=== PATIENT | female | born 2000 | race Caucasian/White ===

== ENCOUNTER 2023-03-31 12:13 | Emergency (ER) | payer BC | END 2023-03-31 13:45 | disposition home or self-care (01) | LOC: MW.ED 12:13 | DX: J02.9 Acute pharyngitis, unspecified (principal); Z91.040 Latex allergy status | CPT/HCPCS: 87651-QW; 99283 ==

== ENCOUNTER 2023-05-24 06:26 | Emergency (ER) | payer SELFPAY ==
[2023-05-24] MEDS ORDERED: Acetaminophen 325 MG Tab PO ONE (06:58)
[2023-05-24] MEDS ORDERED: Lidocaine 2% 11 ML Jelly Filled Syringe MUCMEM STA (06:58)
[2023-05-24] MEDS ORDERED: valACYclovir 500 MG Tab PO ONE (06:58)
[2023-05-24] MEDS ORDERED: Ibuprofen 400 MG Tab PO ONE (06:58)
[2023-05-29 08:02] LABS: HSV-1 DNA Positive (Negative); HSV-2 DNA Negative (Negative)
== END 2023-05-24 07:58 | disposition home or self-care (01) ==
LOC: MW.ED 06:26
DX: B00.9 Herpesviral infection, unspecified (principal); Z91.040 Latex allergy status
CPT/HCPCS: 87529; 99284; A9270; 99283

== ENCOUNTER 2023-09-11 11:48 | Emergency (ER) | payer BC ==
[2023-09-11] MEDS ORDERED: Ondansetron 4 MG/2 ML SDV IVPUSH STA (11:52)
[2023-09-11] MEDS ORDERED: Sodium Chloride 0.9% 10 ML Syringe FLUSH PRN (11:52)
[2023-09-11] MEDS ORDERED: Sodium Chloride 0.9% 2.5 ML Syringe FLUSH PRN (11:52)
[2023-09-11] MEDS ORDERED: Sodium Chloride 0.9% 1,000 ML IV STA ×2 (11:52→12:33)
[2023-09-11 12:10] LABS: BASOPHILS ABSOLUTE AUTO 0.03 K/uL (0.00-0.20); BASOPHILS PERCENT AUTO 0.2 % (0.0-1.0); EOSINOPHILS ABSOLUTE AUTO 0.04 K/uL (0.00-0.45); EOSINOPHILS PERCENT AUTO 0.3 % (0.0-6.0); HEMATOCRIT 42.3 % (37.0-47.0); HEMOGLOBIN 14.9 g/dL (12.0-16.0); IMMATURE GRAN ABSOLUTE AUTO 0.07 K/uL (0.00-0.05); IMMATURE GRAN PERCENT AUTO 0.5 % (0.0-0.4); LYMPHOCYTES ABSOLUTE AUTO 0.24 K/uL (1.00-4.80); LYMPHOCYTES PERCENT AUTO 1.8 % (24.0-44.0); MEAN CORPUSCULAR HEMOGLOBIN 29.2 pg (28.0-32.0); MEAN CORPUSCULAR HGB CONC 35.2 g/dL (32.0-36.0); MEAN CORPUSCULAR VOLUME 82.8 fL (83.0-99.0); MEAN PLATELET VOLUME 10.1 fL (9.4-12.3); MONOCYTES ABSOLUTE AUTO 0.22 K/uL (0.00-0.80); MONOCYTES PERCENT AUTO 1.6 % (0.0-8.0); NEUTROPHILS ABSOLUTE AUTO 13.07 K/uL (1.80-7.70); NEUTROPHILS PERCENT AUTO 95.6 % (41.0-71.0); PLATELET COUNT,PLT 273 K/uL (150-400); RED BLOOD CELL COUNT 5.11 M/uL (4.10-5.30); WHITE BLOOD CELL COUNT,WBC 13.67 K/uL (3.9-11.3)
[2023-09-11 12:33] LABS: A/G RATIO 0.9 (0.9-1.6); ALBUMIN 4.1 g/dL (3.4-5.0); BILIRUBIN TOTAL 0.5 mg/dL (0.2-1.0); CALCIUM 9.3 mg/dL (8.5-10.1); CARBON DIOXIDE,CO2 20.2 mmol/L (21.0-32.0); EST CRCL DRUG DOSING (CG) 69.2 mL/min; MAGNESIUM 1.8 mg/dL (1.8-2.4); POTASSIUM,K 3.6 mmol/L (3.5-5.1); PROTEIN TOTAL,TP 8.6 g/dL (6.4-8.2)
[2023-09-11 13:01] LABS: CORONAVIRUS COVID-19 NAA NEGATIVE (NEGATIVE); INFLUENZA A NAA NEGATIVE (NEGATIVE); INFLUENZA B NAA NEGATIVE (NEGATIVE); RESPIRATORY SYNCYTIAL VIR NAA NEGATIVE (NEGATIVE)
[2023-09-11 14:15] LABS: BILIRUBIN,URINE NEGATIVE (NEGATIVE); COLOR,URINE YELLOW; GLUCOSE,URINE NEGATIVE (NEGATIVE); KETONES,URINE >=80 mg/dL (NEGATIVE); LEUKOCYTE ESTERASE,URINE NEGATIVE (NEGATIVE); NITRITE,URINE NEGATIVE (NEGATIVE); OCCULT BLOOD,URINE NEGATIVE (NEGATIVE); PROTEIN,URINE TRACE mg/dL (NEGATIVE); UROBILINOGEN,URINE 0.2 EU/dL (<2.0)
[2023-09-11 14:22] LABS: EPITHELIAL CELLS,URINE OCCASIONAL (NONE-FEW); RBC,URINE 0-2 (0-2/HPF)
[2023-09-11 14:23] LABS: APPEARANCE,URINE HAZY; BACTERIA,URINE FEW (NEGATIVE); MUCUS,URINE MODERATE (NONE-MOD)
== END 2023-09-11 16:22 | disposition home or self-care (01) ==
LOC: MW.ED 11:48
DX: O21.9 Vomiting of pregnancy, unspecified (principal); Z91.040 Latex allergy status; Z3A.00 Weeks of gestation of pregnancy not specified
CPT/HCPCS: 0241U; 36415; 80053; 81001; 83690; 83735; 84702; 85025; 93005; 93010; 96361; 96374; 99284; 99284-25; J2405; J3490; J7030

== ENCOUNTER 2023-09-13 11:42 | Emergency (ER) | payer BC ==
[2023-09-13] MEDS ORDERED: Sodium Chloride 0.9% 2.5 ML Syringe FLUSH PRN (12:21)
[2023-09-13] MEDS ORDERED: Acetaminophen 325 MG Tab PO ONE (12:21)
[2023-09-13] MEDS ORDERED: Sodium Chloride 0.9% 10 ML Syringe FLUSH PRN (12:21)
[2023-09-13 13:05] LABS: BASOPHILS ABSOLUTE AUTO 0.01 K/uL (0.00-0.20); BASOPHILS PERCENT AUTO 0.2 % (0.0-1.0); HEMATOCRIT 38.2 % (37.0-47.0); HEMOGLOBIN 13.4 g/dL (12.0-16.0); IMMATURE GRAN ABSOLUTE AUTO 0.02 K/uL (0.00-0.05); IMMATURE GRAN PERCENT AUTO 0.4 % (0.0-0.4); LYMPHOCYTES ABSOLUTE AUTO 0.51 K/uL (1.00-4.80); LYMPHOCYTES PERCENT AUTO 9.5 % (24.0-44.0); MEAN CORPUSCULAR HEMOGLOBIN 28.9 pg (28.0-32.0); MEAN CORPUSCULAR HGB CONC 35.1 g/dL (32.0-36.0); MEAN CORPUSCULAR VOLUME 82.3 fL (83.0-99.0); MEAN PLATELET VOLUME 9.9 fL (9.4-12.3); MONOCYTES ABSOLUTE AUTO 0.34 K/uL (0.00-0.80); MONOCYTES PERCENT AUTO 6.3 % (0.0-8.0); NEUTROPHILS ABSOLUTE AUTO 4.51 K/uL (1.80-7.70); NEUTROPHILS PERCENT AUTO 83.6 % (41.0-71.0); PLATELET COUNT,PLT 182 K/uL (150-400); RED BLOOD CELL COUNT 4.64 M/uL (4.10-5.30); WHITE BLOOD CELL COUNT,WBC 5.39 K/uL (3.9-11.3)
[2023-09-13 13:28] LABS: A/G RATIO 0.8 (0.9-1.6); ALBUMIN 3.2 g/dL (3.4-5.0); BILIRUBIN TOTAL 0.4 mg/dL (0.2-1.0); CALCIUM 8.3 mg/dL (8.5-10.1); CREATININE 0.9 mg/dL (0.6-1.0); EST CRCL DRUG DOSING (CG) 76.89 mL/min; POTASSIUM,K 2.9 mmol/L (3.5-5.1); PROTEIN TOTAL,TP 7.2 g/dL (6.4-8.2)
[2023-09-13 14:08] LABS: GLUCOSE,URINE NEGATIVE (NEGATIVE); KETONES,URINE >=80 mg/dL (NEGATIVE); LEUKOCYTE ESTERASE,URINE NEGATIVE (NEGATIVE); NITRITE,URINE NEGATIVE (NEGATIVE); OCCULT BLOOD,URINE NEGATIVE (NEGATIVE); PROTEIN,URINE 30 mg/dL (NEGATIVE); UROBILINOGEN,URINE 0.2 EU/dL (<2.0)
[2023-09-13 14:13] LABS: APPEARANCE,URINE SLT CLOUDY; BILIRUBIN,URINE SMALL (NEGATIVE); COLOR,URINE AMBER
[2023-09-13 14:16] LABS: AMORPHOUS SEDIMENT,URINE MODERATE (NEGATIVE); BACTERIA,URINE FEW (NEGATIVE); EPITHELIAL CELLS,URINE FEW (NONE-FEW); MUCUS,URINE FEW (NONE-MOD); RBC,URINE 0-2 (0-2/HPF)
[2023-09-13] MEDS ORDERED: Magnesium Sulfate/Water 2 GM in Premix Bag 1 BAG IV ONE (14:40)
[2023-09-13] MEDS: Potassium Chloride 100 ML IV SCH ×4 (15:27→19:06)
[2023-09-13 18:13] LABS: CORONAVIRUS COVID-19 NAA NEGATIVE (NEGATIVE); INFLUENZA A NAA NEGATIVE (NEGATIVE); INFLUENZA B NAA NEGATIVE (NEGATIVE); RESPIRATORY SYNCYTIAL VIR NAA NEGATIVE (NEGATIVE)
[2023-09-13] MEDS ORDERED: Cephalexin 500 MG Cap PO ONE (18:29)
[2023-09-13] MEDS ORDERED: Sodium Chloride 0.9% 1,000 ML IV ONE (18:57)
[2023-09-13 19:38] LABS: T3 FREE 2.12 pg/mL (2.18-3.98); T4 FREE 1.39 ng/dL (0.76-1.46); TSH ULTRASENSITIVE 0.17 uIU/mL (0.36-3.74)
== END 2023-09-13 20:59 | disposition home or self-care (01) ==
LOC: MW.ED 11:42
DX: O99.281 Endocrine, nutritional and metabolic diseases complicating pregnancy, first trimester (principal); E87.6 Hypokalemia; R19.7 Diarrhea, unspecified; Z91.040 Latex allergy status; Z3A.01 Less than 8 weeks gestation of pregnancy
CPT/HCPCS: 0241U; 36415; 76801; 80053; 81001; 83735; 84439; 84443; 84481; 84702; 85025; 96365; 96366; 96367; 99284; A9270; J3475; J3480; J3490; J7030; 99283